=== PATIENT | male | born 1950 | race Caucasian/White ===

== ENCOUNTER 2021-03-09 11:14 | Emergency (ER) | payer MEDICARE, OTHER ==
[2021-03-09 15:05] LABS: ALBUMIN 2.8 g/dL (3.4-5.0); BILIRUBIN - TOTAL 0.3 mg/dL (0.2-1.0); BUN/CREAT RATIO (CALC) 12.2 RATIO; CREATININE 0.9 mg/dL (0.67-1.17); GLOBULIN (CALCULATION) 4.2 g/dL; POTASSIUM 3.5 mmol/L (3.5-5.1)
[2021-03-09] MEDS ORDERED: PREDNISONE 20MG20 MG PO (17:02)
[2021-03-09 17:16] LABS: BILIRUBIN NEGATIVE (NEGATIVE); BLOOD NEGATIVE Ery/uL (NEGATIVE); CLARITY CLEAR (CLEAR); COLOR YELLOW (YELLOW); GLUCOSE (U) NORMAL (NORMAL); LEUKOCYTES NEGATIVE Leu/uL (NEGATIVE); NITRITE NEGATIVE (NEGATIVE); PROTEIN TRACE (LOW) mg/dL (NEGATIVE); UROBILINOGEN 0.2 mg/dL (0.2-1.0)
== END 2021-03-09 17:50 | disposition home or self-care (01) ==
LOC: FER 11:14
PROVIDERS: Nurse Practitioner Family
DX: M31.6 Other giant cell arteritis (principal); I10 Essential (primary) hypertension; E11.9 Type 2 diabetes mellitus without complications; Z88.6 Allergy status to analgesic agent
CPT/HCPCS: 36415; 70450; 72040; 80053; 81003; J1170; J2405; J2930